=== PATIENT | male | born 1970 | race Hispanic/Latino ===

== ENCOUNTER → 2019-02-12 | Outpatient (CLI) | payer BC ==
[~2019-02-12] MED LIST: IOPAMIDOL 370 MG/ML 200 ML INFUS..BTL INJ ONE; SODIUM CHLORIDE 0.9% 50ML 50 ML ONE
--- NOTE | 2019-02-12 17:53 | Diagnostic Imaging Report ---
CT of the abdomen and pelvis, with contrast, 02/12/2019. History: Left lower quadrant pain. Comparison: None available. Technique: Multidetector CT scanning of the abdomen and pelvis was performed from the level of the lung bases to the inferior pubic rami after intravenous administration of contrast. Coronal and sagittal multiplanar reformations were obtained. RADIATION DOSE: Total DLP: 410 mGy*cm Dose modulation, iterative reconstruction, and/or weight based adjustment of the mA/kV was utilized to reduce the radiation dose to as low as reasonably achievable. Discussion: LUNG BASES: There is bibasilar dependent atelectasis. ABDOMEN: A 3.5 x 2.2 cm oval circumscribed low density lesion is present within the head of the pancreas measuring -109 Hounsfield units in density, without evidence of enhancement. There is no adjacent biliary or pancreatic ductal dilatation. The remainder of the pancreas is normal in appearance. A 3.6 cm simple cyst is noted in the left lobe of the liver. The liver, gallbladder, biliary tree, spleen, adrenal glands, and kidneys are otherwise normal. The hepatic vein, portal vein, and splenic vein are patent. The abdominal aorta is within normal limits for size. The stomach, small bowel, and large bowel are unremarkable. There is no bowel dilatation. The appendix is visualized and is normal. There is no evidence of adenopathy or free fluid. PELVIS: The bladder, prostate, and seminal vesicles are normal in appearance. A fat-containing left inguinal hernia is present. There is no evidence of free fluid or adenopathy. BONES AND SOFT TISSUES: Mild degenerative changes are present in the lower lumbar spine without evidence of lytic or sclerotic lesion. IMPRESSION: 1. Small simple hepatic cyst. 2. 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 3. Fat-containing left inguinal hernia. Otherwise unremarkable CT of the abdomen and pelvis. Signed by: Suman Grey on 02/12/2019 5:50 PM
== END ==
LOC: CT 15:05
PROVIDERS: ATTEND Internal Medicine Gastroenterology
DX: R10.32 Left lower quadrant pain (principal)
CPT/HCPCS: 74177; Q9967

== ENCOUNTER → 2024-02-12 | Day surgery (SDC) | payer BC ==
[~2024-02-12] MED LIST changes: +DEXMEDETOMIDINE HCL 200 MCG/2 ML VIAL ONE; +FENTANYL CITRATE/PF 100MCG/2 ML INJ ONE; +HYOSCYAMINE SULFATE 0.5 MG/ML INJ ONE; -IOPAMIDOL 370 MG/ML 200 ML INFUS..BTL INJ ONE; +LIDOCAINE HCL 2% LOCAL INJ 5 ML SDV VIAL INJ ONE; +PROPOFOL IV EMULSION 10 MG/ML 50 ML VIAL IV ONE; -SODIUM CHLORIDE 0.9% 50ML 50 ML ONE
[2024-02-12] MEDS: LACTATED RINGER'S 1,000 ML ONE (09:37)
[2024-02-12 11:13] VITALS: TEMP 97.8
[2024-02-12 11:25] VITALS: BP 107/75; PULSE 65; RESP 15; O2SAT 99
== END | disposition home or self-care (01) ==
LOC: OR 08:51
PROVIDERS: ATTEND Internal Medicine Gastroenterology
DX: Z12.11 Encounter for screening for malignant neoplasm of colon (principal); D12.2 Benign neoplasm of ascending colon; K62.1 Rectal polyp; K57.30 Diverticulosis of large intestine without perforation or abscess without bleeding; K64.8 Other hemorrhoids; R73.03 Prediabetes; Z88.6 Allergy status to analgesic agent; Z01.810 Encounter for preprocedural cardiovascular examination
CPT/HCPCS: 45385; 93005; J1980; J2001; J2704; J3010; J7121

== ENCOUNTER → 2024-09-03 | Outpatient (REF) | payer BC | LOC: US 08:06 | PROVIDERS: ATTEND Internal Medicine Gastroenterology | DX: K76.0 Fatty (change of) liver, not elsewhere classified (principal) | CPT/HCPCS: 76700 ==